=== PATIENT | female | born 1970 | race African-American/Black ===

== ENCOUNTER 2018-11-30 11:14 | Emergency (ER) | payer SELFPAY ==
[~2018-11-30] VITALS: Ht 167.6 cm; Wt 110.5 kg
[2018-11-30 11:25] VITALS: TEMP 99.2
[2018-11-30 11:35] LABS: COLLECTION METHOD CLEAN CATCH
[2018-11-30 11:55] LABS: MUCOUS Present /lpf; PH 5 (5-8); URINE APPEARANCE Clear; URINE BACTERIA None Seen /hpf; URINE BILIRUBIN Negative (NEGATIVE); URINE BLOOD Negative (NEGATIVE); URINE COLOR Straw; URINE GLUCOSE Negative (NEGATIVE); URINE KETONE Negative (NEGATIVE); URINE LEUKOCYTE ESTERASE Negative (NEGATIVE); URINE NITRATE Negative (NEGATIVE); URINE PROTEIN(semi-quant) Negative (NEGATIVE); URINE RBC 0-2 /hpf; URINE UROBILINOGEN Negative (NEGATIVE)
[2018-11-30] MEDS ORDERED: HCTZ 25MG TAB25 MG PO ×2 (12:37→13:11)
[2018-11-30] MEDS ORDERED: FLAGYL500 MG PO (13:11)
[2018-11-30 13:19] VITALS: BP 148/93; PULSE 65
== END 2018-11-30 13:19 | disposition home or self-care (01) ==
LOC: COL.ER 11:14
PROVIDERS: Nurse Practitioner
DX: N76.0 Acute vaginitis (principal); B96.89 Other specified bacterial agents as the cause of diseases classified elsewhere; I10 Essential (primary) hypertension; Z98.890 Other specified postprocedural states

== ENCOUNTER 2018-12-01 11:20 | Outpatient (RCR) | payer SELFPAY ==
[~2018-12-01 11:20] MED LIST: FLAGYL500 MG PO; HCTZ 25MG TAB25 MG PO
[2018-12-01 11:22] VITALS: TEMP 98
[2018-12-01 11:24] VITALS: PULSE 90
== END 2019-03-01 | disposition home or self-care (01) ==
LOC: EUO
DX: A54.9 Gonococcal infection, unspecified (principal)
CPT/HCPCS: J0696

== ENCOUNTER 2019-04-14 16:10 | Emergency (ER) | payer SELFPAY ==
[~2019-04-14] VITALS: Ht 167.6 cm; Wt 111.4 kg
[2019-04-14 16:18] VITALS: TEMP 98
[2019-04-14 17:12] LABS: COLLECTION METHOD CLEAN CATCH
[2019-04-14 17:33] LABS: PH 5 (5-8); SQUAMOUS EPITHELIAL 0-2 /hpf; URINE APPEARANCE Clear; URINE BACTERIA None Seen /hpf; URINE BILIRUBIN Negative (NEGATIVE); URINE BLOOD 1+ (NEGATIVE); URINE COLOR Yellow; URINE GLUCOSE Negative (NEGATIVE); URINE KETONE Negative (NEGATIVE); URINE LEUKOCYTE ESTERASE 2+ (NEGATIVE); URINE NITRATE Negative (NEGATIVE); URINE PROTEIN(semi-quant) Negative (NEGATIVE); URINE RBC 0-2 /hpf; URINE UROBILINOGEN Negative (NEGATIVE)
[2019-04-14 18:19] VITALS: BP 154/97; PULSE 87
== END 2019-04-14 18:19 | disposition home or self-care (01) ==
LOC: COL.ER 16:10
PROVIDERS: Physician Assistant
DX: N89.8 Other specified noninflammatory disorders of vagina (principal)
CPT/HCPCS: J0696

== ENCOUNTER 2019-07-07 15:32 | Emergency (ER) | payer SELFPAY ==
[~2019-07-07] VITALS: Ht 167.6 cm; Wt 122.7 kg
[2019-07-07 15:44] VITALS: TEMP 97.9
[2019-07-07 16:19] LABS: COLLECTION METHOD CLEAN CATCH
[2019-07-07 16:25] LABS: MUCOUS Present /lpf; PH 5 (5-8); URINE APPEARANCE Hazy; URINE BACTERIA Rare /hpf; URINE BILIRUBIN Negative (NEGATIVE); URINE BLOOD Negative (NEGATIVE); URINE COLOR Yellow; URINE GLUCOSE Negative (NEGATIVE); URINE KETONE Trace (NEGATIVE); URINE LEUKOCYTE ESTERASE Negative (NEGATIVE); URINE NITRATE Negative (NEGATIVE); URINE PROTEIN(semi-quant) Negative (NEGATIVE); URINE RBC 0-2 /hpf; URINE UROBILINOGEN Negative (NEGATIVE); URINE WBC 0-2 /hpf
[2019-07-07 16:42] LABS: BASO % 0.8 % (0.0-2.0); EOS # 0.3 (0.0-0.7); EOS % 5.7 % (0-4.0); GRAN # 2.9 (1.4-6.5); GRAN % 54.6 % (42.2-75.2); HEMOGLOBIN 10.4 g/dl (12.5-16.0); LYMPH # 1.5 (1.2-3.4); LYMPH % 28.8 % (20.0-51.0); MEAN CELL VOLUME 69 fl (80.0-100.0); MEAN CORPUSCULAR HEMOGLOBIN 21 pg (27.0-31.0); MEAN CORPUSCULAR HGB CONC 31 g/dl (33.0-37.0); MEAN PLATELET VOLUME 9.5 fl (7.4-10.4); MONO # 0.5 (0.1-0.6); MONO % 9.7 % (1.7-9.3); PLATELET COUNT 315 K/mm3 (130-400); RED BLOOD COUNT 4.87 M/mm3 (4.10-5.30); REDCELL DISTRIBUTION WIDTH-CV 18.7 % (11.5-14.5)
[2019-07-07 16:48] LABS: HEMATOCRIT 33.4 % (37.0-47.0)
[2019-07-07 16:50] LABS: ALBUMIN 3.8 gm/dL (3.5-5.0); BILIRUBIN,TOTAL 0.5 mg/dL (0.0-1.0); C-REACTIVE PROTEIN 1.1 mg/dL (0.0-0.9); CALCIUM 9.4 mg/dL (8.4-10.2); CREATININE, serum 0.68 (0.52-1.25); POTASSIUM 4.1 mmol/L (3.4-5.0); TOTAL PROTEIN 7.4 gm/dL (6.4-8.2)
[2019-07-07 19:03] VITALS: BP 153/105; PULSE 79
== END 2019-07-07 19:05 | disposition home or self-care (01) ==
LOC: COL.ER 15:32
PROVIDERS: Emergency Medicine
DX: R11.0 Nausea (principal); N92.6 Irregular menstruation, unspecified; R14.0 Abdominal distension (gaseous); I10 Essential (primary) hypertension; E66.9 Obesity, unspecified; Z98.51 Tubal ligation status

== ENCOUNTER 2019-08-10 08:27 | Emergency (ER) | payer SELFPAY ==
[~2019-08-10] VITALS: Ht 167.6 cm; Wt 118.2 kg
[2019-08-10 08:37] VITALS: BP 170/99; TEMP 97.9
[2019-08-10 10:30] VITALS: PULSE 75
== END 2019-08-10 10:30 | disposition home or self-care (01) ==
LOC: COL.ER 08:27
DX: N76.0 Acute vaginitis (principal); B96.89 Other specified bacterial agents as the cause of diseases classified elsewhere; I10 Essential (primary) hypertension
CPT/HCPCS: J0696

== ENCOUNTER 2019-12-02 12:21 | Emergency (ER) | payer SELFPAY ==
[~2019-12-02] VITALS: Ht 170.2 cm; Wt 107.3 kg
[2019-12-02 12:26] VITALS: BP 138/90; TEMP 98.8
[2019-12-02] MEDS ORDERED: TAMIFLU 75MG75 MG PO (12:59)
[2019-12-02 13:07] VITALS: PULSE 92
== END 2019-12-02 13:07 | disposition home or self-care (01) ==
LOC: COL.ER 12:21
DX: J11.1 Influenza due to unidentified influenza virus with other respiratory manifestations (principal); I10 Essential (primary) hypertension; Z98.890 Other specified postprocedural states

== ENCOUNTER 2020-05-12 11:58 | Emergency (ER) | payer SELFPAY ==
[~2020-05-12] VITALS: Ht 170.2 cm; Wt 127.3 kg
[~2020-05-12 11:58] MED LIST changes: +TAMIFLU 75MG75 MG PO
[2020-05-12 12:02] VITALS: TEMP 97.3
[2020-05-12 12:33] LABS: COLLECTION METHOD CLEAN CATCH
[2020-05-12 12:50] LABS: PH 6 (5-8); SQUAMOUS EPITHELIAL 0-2 /hpf; URINE APPEARANCE Clear; URINE BACTERIA Rare /hpf; URINE BILIRUBIN Negative (NEGATIVE); URINE BLOOD 1+ (NEGATIVE); URINE COLOR Straw; URINE GLUCOSE Negative (NEGATIVE); URINE KETONE Negative (NEGATIVE); URINE LEUKOCYTE ESTERASE 3+ (NEGATIVE); URINE NITRATE Negative (NEGATIVE); URINE PROTEIN(semi-quant) Negative (NEGATIVE); URINE RBC 0-2 /hpf; URINE UROBILINOGEN Negative (NEGATIVE)
[2020-05-12] MEDS ORDERED: FLAGYL500 MG PO (13:03)
[2020-05-12 13:30] VITALS: BP 144/95; PULSE 64
== END 2020-05-12 13:45 | disposition home or self-care (01) ==
LOC: COL.ER 11:58
PROVIDERS: Emergency Medicine
DX: A59.01 Trichomonal vulvovaginitis (principal); A59.9 Trichomoniasis, unspecified
CPT/HCPCS: J0696

== ENCOUNTER 2020-07-24 16:12 | Emergency (ER) | payer SELFPAY ==
[~2020-07-24] VITALS: Ht 160 cm; Wt 123.2 kg
[2020-07-24 16:27] VITALS: TEMP 98.2
[2020-07-24 17:13] LABS: BASO % 0.7 % (0.0-2.0); EOS # 0.1 (0.0-0.7); EOS % 1.8 % (0-4.0); GRAN # 2.9 (1.4-6.5); GRAN % 53.1 % (42.2-75.2); HEMOGLOBIN 11.3 g/dl (12.5-16.0); LYMPH # 1.8 (1.2-3.4); MEAN CELL VOLUME 70 fl (80.0-100.0); MEAN CORPUSCULAR HEMOGLOBIN 22 pg (27.0-31.0); MEAN CORPUSCULAR HGB CONC 32 g/dl (33.0-37.0); MEAN PLATELET VOLUME 8.9 fl (7.4-10.4); MONO # 0.6 (0.1-0.6); MONO % 11.2 % (1.7-9.3); PLATELET COUNT 336 K/mm3 (130-400); RED BLOOD COUNT 5.06 M/mm3 (4.10-5.30); REDCELL DISTRIBUTION WIDTH-CV 16.9 % (11.5-14.5)
[2020-07-24 17:17] LABS: HEMATOCRIT 35.5 % (37.0-47.0)
[2020-07-24 17:20] LABS: ALBUMIN 4.3 gm/dL (3.5-5.0); BILIRUBIN,TOTAL 0.5 mg/dL (0.0-1.0); C-REACTIVE PROTEIN 1.4 mg/dL (0.0-0.9); CALCIUM 9.6 mg/dL (8.4-10.2); CREATININE, serum 0.76 (0.52-1.25); POTASSIUM 3.4 mmol/L (3.4-5.0); TOTAL PROTEIN 8.1 gm/dL (6.4-8.2); URIC ACID 8.3 mg/dL (2.5-6.2)
[2020-07-24] MEDS ORDERED: NORCO 325 MG-51 TAB PO (17:24)
[2020-07-24 17:40] VITALS: BP 127/92; PULSE 86
[2020-07-24 17:46] LABS: ERYTHROCYTE SEDIMENTATION RATE 12 mm/hr (0-20)
== END 2020-07-24 17:40 | disposition home or self-care (01) ==
LOC: COL.ER 16:12
PROVIDERS: Physician Assistant
DX: M25.571 Pain in right ankle and joints of right foot (principal); I10 Essential (primary) hypertension

== ENCOUNTER 2020-09-25 07:26 | Emergency (ER) | payer SELFPAY ==
[~2020-09-25] VITALS: Ht 160 cm; Wt 123.2 kg
[~2020-09-25 07:26] MED LIST changes: +NORCO 325 MG-51 TAB PO
[2020-09-25 07:57] LABS: BASO % 0.8 % (0.0-2.0); EOS # 0.2 (0.0-0.7); EOS % 4.2 % (0-4.0); GRAN % 56.5 % (42.2-75.2); HEMOGLOBIN 11.1 g/dl (12.5-16.0); LYMPH # 1.5 (1.2-3.4); LYMPH % 28.5 % (20.0-51.0); MEAN CELL VOLUME 70 fl (80.0-100.0); MEAN CORPUSCULAR HEMOGLOBIN 22 pg (27.0-31.0); MEAN CORPUSCULAR HGB CONC 32 g/dl (33.0-37.0); MEAN PLATELET VOLUME 9.6 fl (7.4-10.4); MONO # 0.5 (0.1-0.6); MONO % 9.6 % (1.7-9.3); PLATELET COUNT 399 K/mm3 (130-400); REDCELL DISTRIBUTION WIDTH-CV 17.2 % (11.5-14.5)
[2020-09-25 08:06] LABS: CALCIUM 9.5 mg/dL (8.4-10.2); CREATININE, serum 0.87 (0.52-1.25); POTASSIUM 3.6 mmol/L (3.4-5.0)
[2020-09-25 08:37] LABS: TSH w REFLEX 1.78 uIU/mL (0.465-4.680)
[2020-09-25 08:56] LABS: COLLECTION METHOD CLEAN CATCH
[2020-09-25 09:34] LABS: MUCOUS Present /lpf; PH 5 (5-8); URINE APPEARANCE Clear; URINE BACTERIA None Seen /hpf; URINE BILIRUBIN Negative (NEGATIVE); URINE BLOOD 3+ (NEGATIVE); URINE COLOR Yellow; URINE GLUCOSE Negative (NEGATIVE); URINE KETONE Negative (NEGATIVE); URINE LEUKOCYTE ESTERASE Negative (NEGATIVE); URINE NITRATE Negative (NEGATIVE); URINE PROTEIN(semi-quant) Negative (NEGATIVE); URINE RBC 0-2 /hpf; URINE UROBILINOGEN Negative (NEGATIVE)
[2020-09-25] MEDS ORDERED: NAPROSYN500 MG PO (09:48)
[2020-09-25 10:00] VITALS: BP 143/84; PULSE 64; TEMP 97.7
== END 2020-09-25 10:10 | disposition home or self-care (01) ==
LOC: COL.ER 07:26
PROVIDERS: Emergency Medicine; Physician Assistant
DX: N93.8 Other specified abnormal uterine and vaginal bleeding (principal); Z32.02 Encounter for pregnancy test, result negative; Z79.899 Other long term (current) drug therapy
CPT/HCPCS: J1885

== ENCOUNTER 2020-09-29 11:07 | Emergency (ER) | payer SELFPAY ==
[~2020-09-29] VITALS: Ht 160 cm; Wt 123.2 kg
[~2020-09-29 11:07] MED LIST changes: +NAPROSYN500 MG PO
[2020-09-29 11:15] VITALS: TEMP 98.3
[2020-09-29 11:47] LABS: COLLECTION METHOD CLEAN CATCH
[2020-09-29 11:58] LABS: BASO % 0.5 % (0.0-2.0); EOS # 0.3 (0.0-0.7); EOS % 4.4 % (0-4.0); GRAN # 3.3 (1.4-6.5); GRAN % 53.5 % (42.2-75.2); HEMOGLOBIN 10.5 g/dl (12.5-16.0); LYMPH # 1.9 (1.2-3.4); LYMPH % 30.6 % (20.0-51.0); MEAN CELL VOLUME 71 fl (80.0-100.0); MEAN CORPUSCULAR HEMOGLOBIN 22 pg (27.0-31.0); MEAN CORPUSCULAR HGB CONC 31 g/dl (33.0-37.0); MEAN PLATELET VOLUME 9.7 fl (7.4-10.4); MONO # 0.6 (0.1-0.6); MONO % 10.5 % (1.7-9.3); PLATELET COUNT 391 K/mm3 (130-400); RED BLOOD COUNT 4.72 M/mm3 (4.10-5.30); REDCELL DISTRIBUTION WIDTH-CV 17.3 % (11.5-14.5)
[2020-09-29 12:05] LABS: HEMATOCRIT 33.6 % (37.0-47.0)
[2020-09-29 12:15] LABS: BILIRUBIN,TOTAL 0.7 mg/dL (0.0-1.0); CALCIUM 9.1 mg/dL (8.4-10.2); CREATININE, serum 0.7 (0.52-1.25); POTASSIUM 3.4 mmol/L (3.4-5.0); TOTAL PROTEIN 7.8 gm/dL (6.4-8.2)
[2020-09-29 12:19] LABS: C-REACTIVE PROTEIN 0.5 mg/dL (0.0-0.9)
[2020-09-29 12:44] LABS: PH 6 (5-8); SQUAMOUS EPITHELIAL 0-2 /hpf; URINE APPEARANCE Clear; URINE BACTERIA None Seen /hpf; URINE BILIRUBIN Negative (NEGATIVE); URINE BLOOD 2+ (NEGATIVE); URINE COLOR Colorless; URINE GLUCOSE Negative (NEGATIVE); URINE KETONE Negative (NEGATIVE); URINE LEUKOCYTE ESTERASE Negative (NEGATIVE); URINE NITRATE Negative (NEGATIVE); URINE PROTEIN(semi-quant) Negative (NEGATIVE); URINE RBC 0-2 /hpf; URINE UROBILINOGEN Negative (NEGATIVE)
[2020-09-29] MEDS ORDERED: PROVERA 10MG10 MG PO (13:10)
[2020-09-29 13:37] VITALS: BP 144/94; PULSE 72
== END 2020-09-29 13:41 | disposition home or self-care (01) ==
LOC: COL.ER 11:07
PROVIDERS: Family Medicine
DX: N85.00 Endometrial hyperplasia, unspecified (principal)
CPT/HCPCS: J7120

== ENCOUNTER 2020-11-28 08:19 | Emergency (ER) | payer SELFPAY ==
[~2020-11-28] VITALS: Ht 160 cm; Wt 123.2 kg
[~2020-11-28 08:19] MED LIST changes: +PROVERA 10MG10 MG PO
[2020-11-28 08:25] VITALS: TEMP 97
[2020-11-28 08:55] LABS: BASO % 0.5 % (0.0-2.0); EOS # 0.1 (0.0-0.7); GRAN # 3.9 (1.4-6.5); GRAN % 64.2 % (42.2-75.2); HEMATOCRIT 35.3 % (37.0-47.0); HEMOGLOBIN 10.9 g/dl (12.5-16.0); LYMPH # 1.4 (1.2-3.4); LYMPH % 22.4 % (20.0-51.0); MEAN CELL VOLUME 70 fl (80.0-100.0); MEAN CORPUSCULAR HEMOGLOBIN 22 pg (27.0-31.0); MEAN CORPUSCULAR HGB CONC 31 g/dl (33.0-37.0); MONO # 0.6 (0.1-0.6); MONO % 10.1 % (1.7-9.3); PLATELET COUNT 448 K/mm3 (130-400); RED BLOOD COUNT 5.06 M/mm3 (4.10-5.30); REDCELL DISTRIBUTION WIDTH-CV 19.3 % (11.5-14.5)
[2020-11-28 09:10] LABS: ALANINE AMINOTRANSFERASE 18 U/L (4-34); ALBUMIN 4.2 gm/dL (3.5-5.0); ALKALINE PHOSPHATASE 66 U/L (50-136); ANION GAP 5 mmol/L (7-16); AST,SGOT 30 U/L (15-37); BILIRUBIN,TOTAL 0.6 mg/dL (0.0-1.0); BLOOD UREA NITROGEN 19 mg/dL (7-17); CALCIUM 10.1 mg/dL (8.4-10.2); CARBON DIOXIDE 33 mmol/L (22-30); CHLORIDE 101 mmol/L (98-107); CREATININE, serum 0.98 (0.52-1.25); GLUCOSE 145 mg/dL (74-106); LIPASE 186 U/L (23-300); POTASSIUM 4.4 mmol/L (3.4-5.0); SODIUM 139 mmol/L (137-145); TOTAL PROTEIN 8.1 gm/dL (6.4-8.2)
[2020-11-28 09:23] LABS: TROPONIN-I < 0.012 ng/mL (0.000-0.035)
[2020-11-28] MEDS ORDERED: ZOFRAN ODT4 MG PO (10:20)
[2020-11-28 10:30] VITALS: BP 146/81; PULSE 57
== END 2020-11-28 10:30 | disposition home or self-care (01) ==
LOC: COL.ER 08:19
PROVIDERS: Emergency Medicine
DX: R10.13 Epigastric pain (principal); R11.2 Nausea with vomiting, unspecified; R19.7 Diarrhea, unspecified
CPT/HCPCS: C9113; J2405; J7030; Q9967

== ENCOUNTER 2020-12-04 05:53 | Emergency (ER) | payer SELFPAY ==
[~2020-12-04] VITALS: Ht 160 cm; Wt 123.2 kg
[~2020-12-04 05:53] MED LIST changes: +ZOFRAN ODT4 MG PO
[2020-12-04 05:59] VITALS: BP 122/78
[2020-12-04] MEDS ORDERED: MEDROL 4MG DOSPA4 MG PO (07:01)
[2020-12-04 07:44] VITALS: PULSE 81; TEMP 98.1
== END 2020-12-04 07:47 | disposition home or self-care (01) ==
LOC: COL.ER 05:53
DX: R10.13 Epigastric pain (principal); R11.2 Nausea with vomiting, unspecified; R19.7 Diarrhea, unspecified; Z88.8 Allergy status to other drugs, medicaments and biological substances
CPT/HCPCS: J1100; J1200

== ENCOUNTER 2021-01-21 08:08 | Emergency (ER) | payer SELFPAY ==
[~2021-01-21] VITALS: Ht 160 cm; Wt 123.2 kg
[~2021-01-21 08:08] MED LIST changes: +MEDROL 4MG DOSPA4 MG PO
[2021-01-21 08:13] VITALS: PULSE 76; TEMP 97.3
[2021-01-21 09:04] LABS: BASO % 0.6 % (0.0-2.0); EOS # 0.2 (0.0-0.7); EOS % 3.9 % (0-4.0); GRAN # 2.5 (1.4-6.5); GRAN % 54.6 % (42.2-75.2); HEMATOCRIT 34.2 % (37.0-47.0); HEMOGLOBIN 10.6 g/dl (12.5-16.0); LYMPH # 1.4 (1.2-3.4); LYMPH % 29.3 % (20.0-51.0); MEAN CELL VOLUME 70 fl (80.0-100.0); MEAN CORPUSCULAR HEMOGLOBIN 22 pg (27.0-31.0); MEAN CORPUSCULAR HGB CONC 31 g/dl (33.0-37.0); MEAN PLATELET VOLUME 9.1 fl (7.4-10.4); MONO # 0.5 (0.1-0.6); MONO % 11.4 % (1.7-9.3); PLATELET COUNT 317 K/mm3 (130-400); RED BLOOD COUNT 4.88 M/mm3 (4.10-5.30); REDCELL DISTRIBUTION WIDTH-CV 20.7 % (11.5-14.5)
[2021-01-21 09:12] LABS: ALANINE AMINOTRANSFERASE 15 U/L (4-34); ALBUMIN 3.7 gm/dL (3.5-5.0); ALKALINE PHOSPHATASE 53 U/L (50-136); ANION GAP 6 mmol/L (7-16); AST,SGOT 23 U/L (15-37); BILIRUBIN,TOTAL 0.6 mg/dL (0.0-1.0); BLOOD UREA NITROGEN 20 mg/dL (7-17); CALCIUM 8.9 mg/dL (8.4-10.2); CARBON DIOXIDE 28 mmol/L (22-30); CHLORIDE 104 mmol/L (98-107); CREATININE, serum 0.74 (0.52-1.25); GLUCOSE 110 mg/dL (74-106); POTASSIUM 4.2 mmol/L (3.4-5.0); SODIUM 138 mmol/L (137-145); TOTAL PROTEIN 7.2 gm/dL (6.4-8.2)
[2021-01-21 09:23] LABS: TROPONIN-I < 0.012 ng/mL (0.000-0.035)
[2021-01-21] MEDS ORDERED: ROBAXIN 50500 MG/TAB PO (12:27)
[2021-01-21] MEDS ORDERED: MOTRIN 400400 MG/TAB PO (12:27)
[2021-01-21] MEDS ORDERED: TYLENOL 325MG325 MG PO (12:27)
[2021-01-21 13:55] VITALS: BP 135/85
== END 2021-01-21 12:47 | disposition home or self-care (01) ==
LOC: COL.ER 08:08
PROVIDERS: Emergency Medicine
DX: M79.602 Pain in left arm (principal); R91.1 Solitary pulmonary nodule; I10 Essential (primary) hypertension; E66.9 Obesity, unspecified; Z88.8 Allergy status to other drugs, medicaments and biological substances
CPT/HCPCS: J1885; J2270; Q9967

== ENCOUNTER 2021-02-27 10:34 | Emergency (ER) | payer SELFPAY ==
[~2021-02-27] VITALS: Ht 160 cm; Wt 120.5 kg
[~2021-02-27 10:34] MED LIST changes: +MOTRIN 400400 MG/TAB PO; +ROBAXIN 50500 MG/TAB PO; +TYLENOL 325MG325 MG PO
[2021-02-27 10:40] VITALS: TEMP 98.1
[2021-02-27] MEDS ORDERED: NORCO 325 MG-51 TAB PO (13:17)
[2021-02-27 13:30] VITALS: BP 141/88; PULSE 89
== END 2021-02-27 13:30 | disposition home or self-care (01) ==
LOC: COL.ER 10:34
DX: M25.561 Pain in right knee (principal); Z88.8 Allergy status to other drugs, medicaments and biological substances
CPT/HCPCS: J1885

== ENCOUNTER 2021-04-16 18:14 | Emergency (ER) | payer SELFPAY ==
[~2021-04-16] VITALS: Ht 160 cm; Wt 120.5 kg
[2021-04-16 18:30] VITALS: TEMP 98.1
[2021-04-16 20:02] VITALS: BP 141/87; PULSE 91
== END 2021-04-16 20:00 | disposition home or self-care (01) ==
LOC: COL.ER 18:14
DX: R51.9 Headache, unspecified (principal); I10 Essential (primary) hypertension; Z79.899 Other long term (current) drug therapy; Z86.69 Personal history of other diseases of the nervous system and sense organs
CPT/HCPCS: J1885

== ENCOUNTER 2021-05-17 08:19 | Emergency (ER) | payer SELFPAY ==
[~2021-05-17] VITALS: Ht 160 cm; Wt 120.5 kg
[2021-05-17 08:47] VITALS: TEMP 99.3
[2021-05-17 10:34] VITALS: BP 105/71; PULSE 85
== END 2021-05-17 10:34 | disposition home or self-care (01) ==
LOC: COL.ER 08:19
DX: U07.1 COVID-19 (principal); I10 Essential (primary) hypertension; Z79.899 Other long term (current) drug therapy

== ENCOUNTER 2021-12-03 17:30 | Emergency (ER) | payer SELFPAY ==
[~2021-12-03] VITALS: Ht 167.6 cm; Wt 124.5 kg
[2021-12-03 17:44] VITALS: TEMP 98.2
[2021-12-03 19:42] VITALS: BP 123/81; PULSE 61
== END 2021-12-03 19:44 | disposition home or self-care (01) ==
LOC: COL.ER 17:30
DX: U07.1 COVID-19 (principal); I10 Essential (primary) hypertension; Z79.899 Other long term (current) drug therapy

== ENCOUNTER 2022-02-25 03:43 | Emergency (ER) | payer SELFPAY ==
[~2022-02-25] VITALS: Ht 170.2 cm; Wt 125.0 kg
[2022-02-25 03:48] VITALS: TEMP 97.9
[2022-02-25 04:16] LABS: BASO % 0.7 % (0.0-2.0); EOS # 0.3 K/mm3 (0.0-0.7); EOS % 4.5 % (0.0-4.0); GRAN # 2.5 K/mm3 (1.4-6.5); GRAN % 42.7 % (42.2-75.2); LYMPH # 2.5 K/mm3 (1.2-3.4); LYMPH % 42.4 % (20.0-51.0); MEAN CELL VOLUME 70 fl (80.0-100.0); MEAN CORPUSCULAR HEMOGLOBIN 22 pg (27-31); MEAN CORPUSCULAR HGB CONC 32 g/dl (33.0-37.0); MEAN PLATELET VOLUME 9.7 fl (7.4-10.4); MONO # 0.6 K/mm3 (0.1-0.6); MONO % 9.5 % (1.7-9.3); PLATELET COUNT 355 K/mm3 (130-400); RED BLOOD COUNT 4.91 M/mm3 (4.10-5.30); REDCELL DISTRIBUTION WIDTH-CV 17.5 % (11.5-14.5)
[2022-02-25 04:17] LABS: HEMATOCRIT 34.3 % (37.0-47.0)
[2022-02-25 04:34] LABS: ALANINE AMINOTRANSFERASE 20 U/L (0-55); ALBUMIN 3.4 gm/dL (3.5-5.0); ALKALINE PHOSPHATASE 47 U/L (40-150); ANION GAP 10 mmol/L (7-16); AST,SGOT 22 U/L (5-34); BILIRUBIN,TOTAL 0.3 mg/dL (0.2-1.2); BLOOD UREA NITROGEN 11 mg/dL (7-19); CALCIUM 8.7 mg/dL (8.4-10.2); CARBON DIOXIDE 22 mmol/L (22-29); CHLORIDE 108 mmol/L (98-107); CREATININE, serum 0.81 mg/dL (0.57-1.11); GLUCOSE 124 mg/dL (70-99); POTASSIUM 3.9 mmol/L (3.5-4.5); SODIUM 140 mmol/L (136-145); TOTAL PROTEIN 7.1 gm/dL (6.2-8.1)
[2022-02-25 04:40] LABS: TROPONIN-I < 0.010 ng/mL (0.00-0.033)
[2022-02-25] MEDS ORDERED: ANTIVERT 25MG25 MG PO (06:21)
[2022-02-25 06:27] VITALS: BP 137/76; PULSE 72
== END 2022-02-25 06:32 | disposition home or self-care (01) ==
LOC: COL.ER 03:43
PROVIDERS: Emergency Medicine
DX: R42 Dizziness and giddiness (principal); Z91.19 Patient's noncompliance with other medical treatment and regimen
CPT/HCPCS: J7030

== ENCOUNTER 2022-06-16 10:46 | Emergency (ER) | payer SELFPAY ==
[~2022-06-16] VITALS: Ht 170.2 cm; Wt 125.9 kg
[~2022-06-16 10:46] MED LIST changes: +ANTIVERT 25MG25 MG PO
[2022-06-16 10:56] VITALS: BP 127/85; TEMP 98
[2022-06-16 12:48] VITALS: PULSE 66
== END 2022-06-16 12:49 | disposition home or self-care (01) ==
LOC: COL.ER 10:46
DX: M25.511 Pain in right shoulder (principal); M54.2 Cervicalgia; Z28.310 Unvaccinated for COVID-19; W01.0XXA Fall on same level from slipping, tripping and stumbling without subsequent striking against object, initial encounter
CPT/HCPCS: J1885; J2360

== ENCOUNTER 2024-05-02 16:55 | Emergency (ER) | payer SELFPAY ==
[~2024-05-02] VITALS: Ht 167.6 cm; Wt 122.7 kg
[~2024-05-02 16:55] MED LIST changes: +FLEXERIL 1010 MG/TAB PO; +PREDNISONE50 MG PO; +VALTREX1 GM PO; +ZITHROMAX 250M250 MG PO
[2024-05-02 17:07] VITALS: BP 142/99; TEMP 97.1
[2024-05-02 19:12] VITALS: PULSE 75
== END 2024-05-02 19:13 | disposition home or self-care (01) ==
LOC: COL.ER 16:55
DX: M19.071 Primary osteoarthritis, right ankle and foot (principal)

== ENCOUNTER 2024-07-11 10:39 | Emergency (ER) | payer SELFPAY ==
[~2024-07-11] VITALS: Ht 167.6 cm; Wt 125.0 kg
[2024-07-11 10:45] VITALS: TEMP 97.8
[2024-07-11] MEDS ORDERED: Ketorolac 60 MG/2 ML VIAL IM ONE (11:45)
[2024-07-11 12:14] LABS: ALBUMIN 3.2 g/dL (3.5-5.0); BILIRUBIN,TOTAL 0.5 mg/dL (0.2-1.2); CALCIUM 8.8 mg/dL (8.4-10.2); CREATININE, serum 0.77 mg/dL (0.57-1.11); POTASSIUM 3.8 mEq/L (3.5-4.5); TOTAL PROTEIN 6.8 g/dl (6.2-8.1)
[2024-07-11 12:17] LABS: BASO # 0.1 K/mm3 (0.0-0.2); BASO % 1.1 % (0.0-2.0); EOS # 0.2 K/mm3 (0.0-0.7); EOS % 3.3 % (0.0-4.0); GRAN # 1.8 K/mm3 (1.4-6.5); GRAN % 39.8 % (42.2-75.2); HEMATOCRIT 41.8 % (37.0-47.0); HEMOGLOBIN 13.5 g/dl (12.5-16.0); LYMPH % 44.7 % (20.0-51.0); MEAN CELL VOLUME 72 fl (80.0-100.0); MEAN CORPUSCULAR HEMOGLOBIN 23 pg (27-31); MEAN CORPUSCULAR HGB CONC 32 g/dl (33.0-37.0); MEAN PLATELET VOLUME 9.5 fl (7.4-10.4); MONO # 0.5 K/mm3 (0.1-0.6); MONO % 10.7 % (1.7-9.3); PLATELET COUNT 312 K/mm3 (130-400); REDCELL DISTRIBUTION WIDTH-CV 16.3 % (11.5-14.5)
[2024-07-11] MEDS ORDERED: NORCO 325 MG-51 TAB PO (14:22)
[2024-07-11] MEDS ORDERED: NORVASC 5MG5 MG/TAB PO (14:22)
[2024-07-11 14:31] VITALS: BP 105/80; PULSE 75
== END 2024-07-11 14:38 | disposition home or self-care (01) ==
LOC: COL.ER 10:39
PROVIDERS: Personal Emergency Response Attendant
DX: I10 Essential (primary) hypertension (principal); R51.9 Headache, unspecified; Z79.899 Other long term (current) drug therapy; Z86.69 Personal history of other diseases of the nervous system and sense organs
CPT/HCPCS: J1885

== ENCOUNTER 2024-09-17 16:08 | Emergency (ER) | payer OTHER ==
[~2024-09-17] VITALS: Ht 167.6 cm; Wt 129.5 kg
[~2024-09-17 16:08] MED LIST changes: +NORVASC 5MG5 MG/TAB PO
[2024-09-17 16:11] VITALS: BP 118/79; TEMP 97.6
[2024-09-17] MEDS ORDERED: Naproxen 250 MG TAB PO ONE (16:30)
[2024-09-17] MEDS ORDERED: NAPROSYN500 MG PO (17:47)
[2024-09-17 18:25] VITALS: PULSE 72
== END 2024-09-17 18:25 | disposition home or self-care (01) ==
LOC: COL.ER 16:08
DX: M79.671 Pain in right foot (principal); M25.571 Pain in right ankle and joints of right foot; Z87.81 Personal history of (healed) traumatic fracture
CPT/HCPCS: L4386